=== PATIENT | female | born 1975 | race Asian ===

== ENCOUNTER 2017-05-28 14:20 | Emergency (ER) | payer MEDICAID ==
[~2017-05-28] VITALS: Ht 160 cm; Wt 60.8 kg
[~2017-05-28 14:20] MED LIST: CIPRO500 MG PO; CIPROFLOXACIN500 M2 ORAL; FLAGYL500 MG ORAL; IBUPROFEN600 MG ORAL; NORCO 5-325 TA1 EACH ORAL; NORCO1 EA ORAL; PHENERGAN25 M1 ORAL; REGLAN10 MG ORAL; ROBITUSSIN DM T10 ML PO; SYNTHROID100 MCG ORAL; SYNTHROID100 MCG PO; VICODIN 5-5001 EACH PO
[2017-05-28 14:41] VITALS: BP 131/89
--- NOTE | 2017-05-28 15:42 | Emergency Room Report ---
History of Present Illness General Chief Complaint: General Complaint Source: Patient, Medical Record Present Illness HPI 41 Y/O Female Presents to the ED C/O right-sided posterior neck pain 6/10 in severity , tight in nature, that radiates down into the right shoulder progressive x2 days. Patient denies appreciable trauma or fall she denies fevers, chills, photophobia, headaches or recent URI. Patient reports previous injury to the muscles in this area approximately 6 months ago and believes this may be an exacerbation of her previous injury. Eyes ear pain, tinnitus, swollen tender lymph nodes. Denies numbness tingling or loss of sensation or gross motor movements of the extremities, incontinence of bowel or bladder. Denies CP, Palpitations, LOC, AMS, dizziness, Changes in Vision, Sensation, paresthesias, or a sudden severe headache. Allergies: Coded Allergies: ASPIRIN (Verified Allergy, Unknown, 05/28/17) Patient History Past Medical History: see triage record Past Surgical History: none Pertinent Family History: none Immunizations: UTD Reviewed Nursing Documentation: PMH: Agreed, PSxH: Agreed Nursing Documentation-PMH Past Medical History: No History, Except For Review of Systems All Other Systems: negative except mentioned in HPI Physical Exam Vital Signs Date Time Temp Pulse Resp B/P (MAP) Pulse Ox O2 Delivery O2 Flow Rate FiO2 05/28/17 14:22 97.7 61 18 131/89 100 Room Air Sp02 EP Interpretation: reviewed, normal General Appearance: no apparent distress, alert, GCS 15, non-toxic Head: normocephalic, atraumatic Eyes: bilateral eye normal inspection, bilateral eye PERRL ENT: hearing grossly normal, normal pharynx, normal voice, TMs + canals normal Neck: full range of motion, tender lateral - right lateral ttp, no midline ttp , no meningismus. FROM. Respiratory: chest non-tender, lungs clear, normal breath sounds, speaking full sentences Cardiovascular #1: regular rate, rhythm Rectal: deferred Genitourinary: normal inspection Musculoskeletal: back normal, gait/station normal, normal range of motion, non- tender Neurologic: alert, oriented x3, responsive, motor strength/tone normal, sensory intact, speech normal, grossly normal Psychiatric: judgement/insight normal Skin: normal color, no rash, warm/dry, well hydrated Lymphatic: no adenopathy Medical Decision Making PA Attestation Dr. Gomes is my supervising Physician whom patient management has been discussed with. Diagnostic Impression: Primary Impression: Cervical paraspinal muscle spasm Additional Impression: Cervical muscle pain ER Course 41 Y/O Female Presents to the ED C/O right-sided posterior neck pain 6/10 in severity , tight in nature, that radiates down into the right shoulder progressive x2 days. Patient denies appreciable trauma or fall she denies fevers, chills, photophobia, headaches or recent URI. Patient reports previous injury to the muscles in this area approximately 6 months ago and believes this may be an exacerbation of her previous injury. Eyes ear pain, tinnitus, swollen tender lymph nodes. Denies numbness tingling or loss of sensation or gross motor movements of the extremities, incontinence of bowel or bladder. Denies CP, Palpitations, LOC, AMS, dizziness, Changes in Vision, Sensation, paresthesias, or a sudden severe headache. Ddx considered but are not limited to Fracture, dislocation, contusion, epidural abscess, Sprain/Strain/Spasm Vital signs: are WNL, pt. is afebrile H&PE are most consistent with muscle spasm/strain. ORDERS: none required at this time. ED INTERVENTIONS: none required at this time. DISCHARGE: At this time pt. is stable for d/c to home. Will provide printed patient care instructions, and any necessary prescriptions. Care plan and follow up instructions have been discussed with the patient prior to discharge. Last Vital Signs Date Time Temp Pulse Resp B/P (MAP) Pulse Ox O2 Delivery O2 Flow Rate FiO2 05/28/17 14:41 97.7 70 18 131/89 100 Room Air Disposition: HOME, SELF-CARE Condition: Stable Scripts Methocarbamol* (ROBAXIN*) 500 Mg Tablet 1000 MG PO TID for 7 Days, #42 TAB 0 Refills Prov: Apryl May 05/28/17 Departure Forms: Return to Work Return to Work Date: May 31, 2017 Work Restrictions: None Return to Full Activity: May 31, 2017 Patient Instructions: Muscle Cramps and Spasms, [id number] Additional Instructions: Take medications as directed. Follow up with a Primary Care Provider in 3-5 days, even if your symptoms have resolved. --Please review list of primary care clinics, if you do not already have a primary care provider Return sooner to ED if new symptoms occur, or current symptoms become worse. Do not drink alcohol, drive, or operate heavy machinery while taking Muscle Relaxers as this may cause drowsiness. - Please note that this Emergency Department Report was dictated using [employer] engineer chief technology software, occasionally this can lead to erroneous entry secondary to interpretation by the dictation equipment. Apryl May May 28, 2017 15:42
[2017-05-28] MEDS ORDERED: ROBAXIN500 MG PO (15:43)
== END 2017-05-28 16:00 | disposition home or self-care (01) ==
LOC: EMR 15:00
DX: M62.838 Other muscle spasm (principal); M54.2 Cervicalgia
CPT/HCPCS: 99283